=== PATIENT | female | born 1975 | race American Indian/Alaskan Native ===

== ENCOUNTER 2017-03-11 11:56 | Outpatient (CLI) | payer OTHER ==
[2017-03-11] MEDS ORDERED: CEFADROXIL500 MG PO ×2 (15:41)
[2017-04-18] MEDS ORDERED: ATABEX EC CAPL1 EACH PO (11:58)
[2017-04-18] MEDS ORDERED: IRON 100 PLUS1 EACH PO (11:59)
== END 2017-03-11 17:35 | disposition home or self-care (01) ==
LOC: OBS/DEL 11:56
DX: Z34.82 Encounter for supervision of other normal pregnancy, second trimester (principal); O23.32 Infections of other parts of urinary tract in pregnancy, second trimester; N93.0 Postcoital and contact bleeding

== ENCOUNTER 2017-04-30 06:12 | Inpatient (IN) | payer OTHER ==
[~2017-04-30] VITALS: Ht 152.4 cm; Wt 66.7 kg
[~2017-04-30 06:12] MED LIST: ATABEX EC CAPL1 EACH PO; CEFADROXIL500 MG PO; IRON 100 PLUS1 EACH PO
[2017-05-05] MEDS ORDERED: HYDROXYZINE PAM50 MG PO ×2 (09:03)
[2017-05-05] MEDS ORDERED: NIFEDIPINE ER30 MG PO ×2 (09:03)
== END 2017-05-05 11:38 | DRG 781 ==
LOC: LDR 06:12 → OB/GYN 05-01 09:13
PROC: 4A1HXCZ Monitoring of Products of Conception, Cardiac Rate, External Approach (ICD-10-PCS; principal; 2017-04-30)
PROC: BY4FZZZ Ultrasonography of Third Trimester, Single Fetus (ICD-10-PCS; 2017-04-30)
PROC: BU46ZZZ Ultrasonography of Uterus (ICD-10-PCS; 2017-04-30)
DX: O23.43 Unspecified infection of urinary tract in pregnancy, third trimester (principal); O60.03 Preterm labor without delivery, third trimester; O46.8X3 Other antepartum hemorrhage, third trimester; B96.89 Other specified bacterial agents as the cause of diseases classified elsewhere; Z3A.32 32 weeks gestation of pregnancy; O09.523 Supervision of elderly multigravida, third trimester

== ENCOUNTER 2017-06-05 13:19 | Inpatient (IN) | payer OTHER ==
[~2017-06-05] VITALS: Ht 152.4 cm; Wt 71.7 kg
[~2017-06-05 13:19] MED LIST changes: +HYDROXYZINE PAM50 MG PO; +NIFEDIPINE ER30 MG PO
[2017-06-05] MEDS ORDERED: ATABEX DHA 200200 MG PO (13:45)
[2017-06-05] MEDS ORDERED: FERROCHEL (13:47)
[2017-06-13] MEDS ORDERED: KETO10TA2 PO (07:59)
[2017-06-13] MEDS ORDERED: Mylicon 125MG PO (07:59)
== END 2017-06-13 09:16 | DRG 766 ==
LOC: O/R 06-10 07:09 → OB/GYN 06-10 07:09 → O/R 06-10 13:19 → OB/GYN 06-10 16:06
PROVIDERS: Obstetrics & Gynecology
PROC: 4A1HXCZ Monitoring of Products of Conception, Cardiac Rate, External Approach (ICD-10-PCS; 2017-06-10)
PROC: 10D00Z1 Extraction of Products of Conception, Low, Open Approach (ICD-10-PCS; principal; 2017-06-10 14:15)
DX: O34.211 Maternal care for low transverse scar from previous cesarean delivery (principal); Z3A.38 38 weeks gestation of pregnancy; Z37.0 Single live birth; O46.8X3 Other antepartum hemorrhage, third trimester

== ENCOUNTER 2017-06-19 05:59 | Day surgery (SDC) | payer OTHER ==
[~2017-06-19] VITALS: Ht 152.4 cm; Wt 70.8 kg
[~2017-06-19 05:59] MED LIST changes: +ATABEX DHA 200200 MG PO; +FERROCHEL; +KETO10TA2 PO; +Mylicon 125MG PO
== END 2017-06-19 19:52 | disposition home or self-care (01) ==
LOC: ER 05:59 → O/R 14:35 → SEC-K 14:35 → ER 14:35 → CIR.AMB 15:00 → O/R 22:51 → SEC-K 22:51
DX: O72.2 Delayed and secondary postpartum hemorrhage (principal); D25.0 Submucous leiomyoma of uterus